=== PATIENT | female | born 1990 ===

== ENCOUNTER 2018-02-14 08:40 | Emergency (ER) | payer OTHER ==
[2018-02-14 09:36] VITALS: PULSE 77; RESP 16; TEMP 98.1; O2SAT 100
--- NOTE | 2018-02-14 09:54 | ED PDOC ---
Arrival/HPI - General Chief Complaint: Female Genitourinary Time Seen by Provider: 02/14/18 09:38 Historian: Patient - History of Present Illness Narrative History of Present Illness (Text): 02/14/18 09:57 27-year-old female presents today with a 2 day history of dysuria and a one-day history of right lower back pain. Patient states the back pain started a few hours ago she states that just achy pain in the low back. Patient states she has a history of urinary tract infections with similar symptoms in the past. Patient states she tried some Pyridium at home for the dysuria. Patient states she has been urinating more frequently. Patient denies fevers or chills. No nausea vomiting diarrhea or constipation. She denies chest pain or shortness of breath. Patient denies vaginal bleeding or vaginal discharge. Patient denies dizziness or weakness. No other complaints Time/Duration: Other (2 days) Symptom Onset: Gradual Symptom Course: Worsening Quality: Burning Severity Level: Mild Past Medical History - Provider Review Nursing Documentation Reviewed: Yes - Travel History Have you recently traveled outside [place] w/in the past 3 mons?: No - Tetanus Immunization Tetanus Immunization: Unknown - Psychiatric Hx Psychophysiologic Disorder: No Hx Substance Use: No Family/Social History - Physician Review Nursing Documentation Reviewed: Yes Family/Social History: Unknown Family HX Smoking Status: Never Smoked Hx Alcohol Use: No Hx Substance Use: No Allergies/Home Meds Allergies/Adverse Reactions: Allergies No Known Allergies Allergy (Verified 02/14/18 09:21) Home Medications: Home Meds Medication Instructions Recorded Confirmed Desogestrel-Ethinyl Estradiol 1 tab PO DAILY 02/14/18 02/14/18 [Apri 28 Day Tablet] Review of Systems - Review of Systems Constitutional: absent: Fatigue, Fevers Respiratory: absent: SOB, Cough Cardiovascular: absent: Chest Pain, Palpitations Gastrointestinal: absent: Abdominal Pain, Nausea, Vomiting Genitourinary Female: Dysuria, Frequency. absent: Hematuria, Vaginal Bleeding, Vaginal Discharge Musculoskeletal: Back Pain Skin: absent: Rash, Pruritis Neurological: absent: Headache, Dizziness Hemo/Lymphatic: absent: Adenopathy, Easy Bleeding Physical Exam Vital Signs Reviewed: Yes Vital Signs Temp Pulse Resp BP Pulse Ox 02/14/18 09:35 98.1 F 77 16 122/82 100 Temperature: Afebrile Blood Pressure: Normal Pulse: Regular Respiratory Rate: Normal Appearance: Positive for: Well-Appearing, Non-Toxic, Comfortable Pain Distress: None Mental Status: Positive for: Alert and Oriented X 3 - Systems Exam Head: Present: Atraumatic Mouth: Present: Moist Mucous Membranes Neck: Present: Normal Range of Motion Respiratory/Chest: Present: Clear to Auscultation, Good Air Exchange. No: Respiratory Distress, Accessory Muscle Use Cardiovascular: Present: Regular Rate and Rhythm, Normal S1, S2. No: Murmurs Abdomen: No: Tenderness, Distention, Peritoneal Signs, Rebound, Guarding Back: Present: Normal Inspection. No: CVA Tenderness, Midline Tenderness, Paraspinal Tenderness Upper Extremity: Present: Normal ROM Lower Extremity: Present: Normal ROM Neurological: Present: GCS=15, Speech Normal Skin: Present: Warm, Dry, Normal Color. No: Rashes Psychiatric: Present: Alert, Oriented x 3 Medical Decision Making ED Course and Treatment: 02/14/18 10:02 Patient is nontoxic well-appearing in no distress with stable vital signs pt with dyuria x 2 days. right low back pain today. no CVA tenderness. afebrile. no abdominal tenderness. hx of uti. Urinalysis: Urine culture: pending advised follow up with the primary care physician within the next 2 days. advised immediate return if symptoms worsen,persist or if new symptoms develop. Patient verbalizes understanding of discharge instructions and need for immediate followup. all aspects of this case were discussed the attending of record. Impression: Urinary tract infection Motrin every 6 hours as needed for pain Keflex; 1 capsule twice daily x 10 days Pyridium one tablet twice daily x3 days Followup with primary care physician within the next 2 days Follow up with the urologist for the next 2 days Return if symptoms worsen persist or if new symptoms develop; high fevers, increasing pain, vomiting, dizziness, weakness, or if any other concerning symptoms develop. Disposition/Present on Arrival - Present on Arrival Any Indicators Present on Arrival: No History of DVT/PE: No History of Uncontrolled Diabetes: No Urinary Catheter: No History of Decub. Ulcer: No History Surgical Site Infection Following: None - Disposition Have Diagnosis and Disposition been Completed?: Yes Diagnosis: Urinary tract infection Disposition: HOME/ ROUTINE Disposition Time: 09:50 Patient Plan: Discharge Patient Problems: Current Active Problems Problem Status Onset Urinary tract infection Acute Condition: GOOD Discharge Instructions (ExitCare): Urinary Tract Infections in Adults Additional Instructions: Motrin every 6 hours as needed for pain Keflex; 1 capsule twice daily x 10 days Pyridium one tablet twice daily x3 days Followup with primary care physician within the next 2 days Follow up with the urologist for the next 2 days Return if symptoms worsen persist or if new symptoms develop; high fevers, increasing pain, vomiting, dizziness, weakness, or if any other concerning symptoms develop. Prescriptions: Cephalexin [Keflex] 500 mg PO BID #20 capsule Ibuprofen [Motrin] 600 mg PO Q6H PRN #20 tab PRN Reason: pain/fever reduction Phenazopyridine [Phenazopyridine HCl] 200 mg PO BID #6 tab Referrals: Karrie Morelos MD [Primary Care Provider] - Follow up with primary Alisha Garcia MD [Staff Provider] - Follow up with primary Forms: [employer] ([place]), WORK NOTE
[2018-02-14 09:59] LABS: URINE BILIRUBIN NEGATIVE (NEGATIVE); URINE BLOOD NEGATIVE (NEGATIVE); URINE GLUCOSE (UA) NEGATIVE (NEGATIVE); URINE LEUKOCYTE ESTERASE SMALL Leu/uL (NEGATIVE); URINE PROTEIN TRACE mg/dL (<30 mg/dL)
[2018-02-14 10:00] LABS: URINE APPEARANCE SL CLOUDY (CLEAR); URINE COLOR YELLOW (YELLOW)
[2018-02-14 10:04] LABS: URINE BACTERIA FEW (NEG); URINE RBC NEGATIVE /hpf (0-2)
[2018-02-14 10:40] VITALS: BP 129/88
== END 2018-02-14 10:39 | disposition home or self-care (01) ==
LOC: MERGE 08:40 → ED 08:40
DX: N39.0 Urinary tract infection, site not specified (principal)